=== PATIENT | female | born 1990 | race Hispanic/Latino ===

== ENCOUNTER 2018-06-16 14:16 | Outpatient (CLI) | payer OTHER, MEDICAID ==
[2018-06-16 14:58] VITALS: BP 114/66
[2018-06-16] MEDS ORDERED: NORMOSOL R PH IV SCH (15:00)
[2018-06-16] MEDS ORDERED: BICITRA PO ONE (16:00)
[2018-06-16 16:39] LABS: Basophils % (Auto) 0.1 % (0.0-1.8); Eosinophils % (Auto) 0.1 % (0.0-4.3); Hematocrit 35.1 % (30.3-42.9); Hemoglobin 12.1 gm/dl (10.1-14.3); Lymphocytes # (Auto) 1.2 K/mm3 (1.2-5.4); Lymphocytes % (Auto) 7.7 % (13.4-35.0); Mean Corpuscular HGB Conc 35 % (30-34); Mean Corpuscular Hemoglobin 31 pg (28-32); Mean Corpuscular Volume 91 fl (79-97); Monocytes # (Auto) 0.4 K/mm3 (0.0-0.8); Monocytes % (Auto) 2.7 % (0.0-7.3); Platelet Count 215 K/mm3 (140-440); Red Blood Count 3.87 M/mm3 (3.65-5.03); Red Cell Distribution Width 13.8 % (13.2-15.2)
[2018-06-16] MEDS ORDERED: LACTATED RINGERS 1,000 ML IV ONE (16:44)
[2018-06-16 16:55] LABS: Lipase 82 units/L (13-60)
[2018-06-16 16:58] LABS: Albumin 3.8 g/dL (3.9-5); BUN/Creatinine Ratio 14; Blood Urea Nitrogen 7 mg/dL (7-17); Calcium 9.5 mg/dL (8.4-10.2); Hemolysis Index 206
[2018-06-16] MEDS ORDERED: PEPCID IV SCH (17:04)
[2018-06-16 17:07] LABS: Alanine Aminotransferase 26 units/L (7-56)
[2018-06-16] MEDS ORDERED: PEPCID IV ONE (17:29)
--- NOTE | 2018-06-17 10:27 | Ultrasound Report ---
FINAL REPORT EXAM: US ABDOMEN LIMITED HISTORY: ABD PAIN; N/V; PT 35WK PREG TECHNIQUE: Directed sonography of the right upper quadrant. PRIORS: None. FINDINGS: Gallbladder possible common bile duct contain echogenic and mildly shadowing foci. Wall thickness within normal limits. The intrahepatic bile ducts prominent or mildly dilated. Common bile duct also mildly dilated measuring 8 mm in maximal diameter. Liver has normal homogeneous echogenicity without focal abnormalities. Right kidney measures 11.3 cm in longest dimension and is grossly unremarkable. Limited visualized pancreatic parenchyma grossly unremarkable. IMPRESSION: 1. Findings which may represent cholestasis versus cholelithiasis, with similar echogenic foci in common bile duct and mild biliary duct dilatation, as reported.
== END 2018-06-16 18:15 | disposition home or self-care (01) ==
LOC: TRG 14:16
PROVIDERS: ATTEND Obstetrics & Gynecology
DX: O47.03 False labor before 37 completed weeks of gestation, third trimester (principal); O99.513 Diseases of the respiratory system complicating pregnancy, third trimester; J45.909 Unspecified asthma, uncomplicated; Z3A.35 35 weeks gestation of pregnancy
CPT/HCPCS: 36415; 59025; 76705; 80053; 82150; 83690; 85025; 96360; 96372; J7120